=== PATIENT | male | born 1970 | race Caucasian/White ===

== ENCOUNTER 2017-11-06 11:20 | Emergency (ER) | payer BC ==
[2017-11-06] MEDS ORDERED: Albuterol 2.5 MG/3 ML NEB.SOL* (0.083%) INH ONE (12:38)
--- NOTE | 2017-11-06 12:59 | UC ---
General HPI - HPI Summary HPI Summary: Patient presents with an unremarkable past medical history. He presents today with two-three week onset which include, fevers, night sweats, chills, persisten coughing with sputum production and significant fatigue, malaise and anorexia. He states he has no appetite, but does continue to urinate. He reports that the coughing led to vomiting, and he does have intermittent nausea. He presents today for evaluation. He complain of one week ago, diarrhea which is improving. Denies chest pain, abdominal pain, rash or joint pain. - History of Current Complaint Chief Complaint: UCGeneralIllness Stated Complaint: FEVER,COUGH,BODYACHE Time Seen by Provider: 11/06/17 12:23 Onset/Duration: Gradual Onset, Lasting Weeks Timing: Constant Associated Signs & Symptoms: Positive: Cough, Fever, Nausea, Weakness - Allergy/Home Medications Allergies/Adverse Reactions: Allergies Allergy/AdvReac Type Severity Reaction Status Date / Time No Known Allergies Allergy Verified 11/06/17 11:38 Home Medications: Home Medications Guaifenesin [Guaifenesin ER] 1 tab PO ONCE PRN 11/06/17 [History Confirmed 11/06] Ibuprofen [Ibuprofen 200 MG] 600 mg PO Q6HR PRN 11/06/17 [History Confirmed ] Multiple Vitamins W/ Minerals [Centrum Ultra Mens] 1 tab PO DAILY 11/06/17 [ History Confirmed 11/06/17] PMH/Surg Hx/FS Hx/Imm Hx Previously Healthy: Yes - Surgical History Surgical History: None - Family History Known Family History: Positive: Cardiac Disease - Social History Occupation: Employed Full-time Lives: With Family Alcohol Use: Daily Alcohol Amount: 1-2 drinsk daily Substance Use Type: None Smoking Status (MU): Former Smoker Type: Cigars Amount Used/How Often: one - two monthly Have You Smoked in the Last Year: Yes Household Exposure Type: Cigarettes - Immunization History Most Recent Influenza Vaccination: NOT UTD Review of Systems Constitutional: Fever, Chills, Fatigue Skin: Negative Eyes: Negative ENT: Sore Throat, Nasal Discharge, Sinus Congestion Respiratory: Cough Cardiovascular: Negative Gastrointestinal: Negative Genitourinary: Negative Motor: Negative Neurovascular: Negative Musculoskeletal: Arthralgia, Myalgia Neurological: Negative Psychological: Negative Is Patient Immunocompromised?: No All Other Systems Reviewed And Are Negative: Yes Physical Exam Triage Information Reviewed: Yes Appearance: Ill-Appearing Vital Signs: Initial Vital Signs Temp 99.5 F 11/06/17 11:33 Pulse 98 11/06/17 11:33 Resp 16 11/06/17 11:33 BP 144/88 11/06/17 11:33 Pulse Ox 98 11/06/17 11:33 Vital Signs Reviewed: Yes Eye Exam: Normal ENT: Positive: Pharynx normal, Pharyngeal erythema, Tonsillar swelling, Uvula midline - uvual midline with edema. Neck exam: Normal Neck: Positive: 1 Respiratory Exam: Normal Respiratory: Positive: Decreased breath sounds, Crackles, Rhonchi Cardiovascular Exam: Normal Cardiovascular: Positive: RRR, No Murmur Abdominal Exam: Normal Skin Exam: Normal Course/Dx - Course Course Of Treatment: Patient presents with 2-3 week onset generalized fatigue, malaise, with initial symtpoms of nausea, diarrhea, and loss of appetite. He states most of the GI symtpoms have now improved. He now complains of cough, sputum production that at time is so severe he vomits.cHis influenza test was positive for "A". Lungs sounds reveal course audible crackles and inspiratory rhonus of the lowe lobes. CXR was obtained and was negative for pneumonia, he presents clincally with bronchitis and is going to be treated with zpk, and tessalon pearles, and for nausea pepcid. All of the diagnositc studies were reviewed with the patient and he understands that if his symtpoms do not improve he needs to go to the er for further evaluation. - Differential Dx - Multi-Symptom Differential Diagnoses: Other - influenza bronchitis Provider Diagnoses: influenza. bronchitis. nausea. vomiting Discharge - Discharge Plan Condition: Stable Disposition: HOME Prescriptions: Azithromycin TAB* [Zithromax TAB (Z-ELIJAH) 250 mg #6 tabs] 250 mg PO DAILY #6 tab Benzonatate [TESSALON 200 MG CAP] 200 mg PO TID PRN #30 cap PRN Reason: Cough Famotidine TAB* [Pepcid 20 MG TAB*] 20 mg PO BID #14 tab MDD 2 Patient Education Materials: Influenza (ED), Acute Bronchitis (ED), Acute Nausea and Vomiting (ED) Referrals: Bharathi Raygoza MD [Primary Care Provider] -
--- NOTE | 2017-11-06 14:09 | RAD ---
INDICATION: 3 weeks of cough and fever COMPARISON: None TECHNIQUE: PA and lateral views of the chest were obtained. FINDINGS: The heart and mediastinum are normal in size and contour. The lungs are grossly clear. There is no evidence of large pleural effusion. Visualized bones are normal for the patient's age. There is no radiographic evidence of free air beneath the diaphragm IMPRESSION: No radiographic evidence of acute cardiopulmonary disease.
[2017-11-06 14:15] VITALS: BP 135/91
[2017-11-06 16:25] LABS: ABS Basophils 0 10^3/ul (0-0.2); ABS Eosinophils 0 10^3/ul (0-0.6); ABS Lymphocytes 1.2 10^3/ul (1.0-4.8); ABS Monocytes 0.9 10^3/ul (0-0.8); ABS Nucleated RBC 0 10^3/ul; Eosinophil % 0.1 % (0-6); Hematocrit 49 % (42-52); Hemoglobin 16.8 g/dl (14.0-18.0); Lymphocyte % 9.5 % (25-47); Mean Corpuscular HGB Conc 35 g/dl (31-36); Mean Corpuscular Hemoglobin 32 pg (27-31); Mean Corpuscular Volume 94 fL (80-94); Mean Platelet Volume 10 um3 (7.4-10.4); Nucleated Red Blood Cells % 0; Platelet Count 257 10^3/ul (150-450); Red Cell Distribution Width 13 % (10.5-15); White Blood Count 12.2 10^3/ul (3.5-10.8)
[2017-11-06 17:10] LABS: EGFR Non-African American 94.9 (>60)
--- NOTE | 2017-11-07 08:35 | UC ---
- Progress Note Progress Note: mild increase WBCs elevated LFTs needs to follow up with his PMD Course/Dx - Course Course Of Treatment: Patient presents with 2-3 week onset generalized fatigue, malaise, with initial symtpoms of nausea, diarrhea, and loss of appetite. He states most of the GI symtpoms have now improved. He now complains of cough, sputum production that at time is so severe he vomits.cHis influenza test was positive for "A". Lungs sounds reveal course audible crackles and inspiratory rhonus of the lowe lobes. CXR was obtained and was negative for pneumonia, he presents clincally with bronchitis and is going to be treated with zpk, and tessalon pearles, and for nausea pepcid. All of the diagnositc studies were reviewed with the patient and he understands that if his symtpoms do not improve he needs to go to the er for further evaluation.
== END 2017-11-06 14:26 | disposition home or self-care (01) ==
LOC: UCEAST 11:20
DX: J11.1 Influenza due to unidentified influenza virus with other respiratory manifestations (principal); J40 Bronchitis, not specified as acute or chronic; R11.2 Nausea with vomiting, unspecified; R19.7 Diarrhea, unspecified; Z87.891 Personal history of nicotine dependence
CPT/HCPCS: 36415; 71020; 80053; 85025; 87502; 87651; 99212; G0463

== ENCOUNTER 2019-12-29 11:07 | Emergency (ER) | payer BC ==
--- NOTE | 2019-12-29 11:25 | UC ---
Lower Extremity/Ankle HPI - HPI Summary HPI Summary: 49 yo male presents with RIGHT calf pain. He tells me that he was playing soccer on 12/19 and felt a pop in his right calf. Since that time has had pain to the area. Over the last 5-7 days has had increasing swelling to the calf despite ice and elevation. He is having difficulty walking due to swelling and pain. Denies fever, numbness, tingling, or hx of blood clots. - History of Current Complaint Stated Complaint: RT LEG/CALF PAIN Time Seen by Provider: 12/29/19 11:24 Hx Obtained From: Patient Onset/Duration: Sudden Onset Severity Initially: Moderate Severity Currently: Moderate Pain Intensity: 7 Pain Scale Used: 0-10 Numeric - Allergies/Home Medications Allergies/Adverse Reactions: Allergies Allergy/AdvReac Type Severity Reaction Status Date / Time No Known Allergies Allergy Verified 12/29/19 11:33 Home Medications: Home Medications Ascorbic Acid TAB* [Vitamin C TAB*] 500 mg PO DAILY 09/24/19 [History Confirmed 12/29/19] Cholecalciferol TAB* [Vitamin D TAB*] 1,000 unit PO DAILY 09/24/19 [History Confirmed 12/29/19] Vitamin E CAP* 400 units PO DAILY 10/01/19 [History Confirmed 12/29/19] Ibuprofen 400 mg PO ONCE PRN 12/29/19 [History Confirmed 12/29/19] PMH/Surg Hx/FS Hx/Imm Hx - Additional Past Medical History Additional PMH: Neck pain - Surgical History Surgical History: None - Family History Known Family History: Positive: Cardiac Disease - Social History Lives: With Family Alcohol Use: Daily Alcohol Amount: 1-2 drinsk daily Substance Use Type: None Smoking Status (MU): Former Smoker Type: Cigars Amount Used/How Often: one - two monthly Have You Smoked in the Last Year: Yes Household Exposure Type: Cigarettes - Immunization History Most Recent Influenza Vaccination: NOT UTD Review of Systems All Other Systems Reviewed And Are Negative: No Constitutional: Positive: Negative Respiratory: Positive: Negative Cardiovascular: Positive: Negative Neurovascular: Positive: Negative Musculoskeletal: Positive: Other: - Right calf pain Neurological/Mental Status: Positive: Negative Psychological: Positive: Negative Physical Exam - Summary Physical Exam Summary: GENERAL: NAD. WDWN. No pain distress. SKIN: No rashes, sores, lesions, or open wounds. CHEST: No accessory muscle use. Breathing comfortably and in no distress. CV: Pulses intact PT and DP. Cap refill <2seconds MSK: RIGHT CALF: Moderate edema 45cm compared to 40cm on left. FROM at right knee and ankle. Negative cobb test. NEURO: Alert. Sensations intact and symmetric B/L LEs PSYCH: Age appropriate behavior. Triage Information Reviewed: Yes Vital Signs: Vital Signs: Temp Pulse Resp BP Pulse Ox 98 F 68 18 123/78 98 12/29/19 11:28 12/29/19 11:28 12/29/19 11:28 12/29/19 11:12/29/19 11:28 Vital Signs Reviewed: Yes Diagnostics - Radiology US right calf Radiology Interpretation Completed By: Radiologist Summary of Radiographic Findings: TECHNIQUE: Multiple transverse and longitudinal ultrasound images were obtained of the right lower extremity from the level of the common femoral vein inferiorly through to the infrapopliteal veins using grayscale, color Doppler, and spectral Doppler imaging with and without compression and with augmentation. Comparison images were obtained of the contralateral common femoral vein. FINDINGS: VEINS: The venous system of the right lower extremity is compressible throughout its course, with normal flow on color Doppler imaging and normal response to augmentation on spectral Doppler imaging. SOFT TISSUES: There is an area of heterogeneous echogenicity of the right mid calf an area of pain OTHER FINDINGS: None. IMPRESSION: 1. NO RIGHT LOWER EXTREMITY DEEP VEIN THROMBOSIS 2. AREA OF HETEROGENEOUS ECHOGENICITY WITHIN THE RIGHT MID CALF IN THE AREA OF PAIN WHICH MAY INDICATE INTRAMUSCULAR HEMATOMA IN THE SETTING OF INJURY. Lower Extremity Course/Dx - Course Course Of Treatment: US as above. Given worsening symptoms and swelling - I called Orthopedics and they have scheduled pt for an appt tomorrow morning at 10:[address] Narayan for further evaluation. Discussed results and appt with pt. No signs of compartment syndrome today, but I did review signs/symptoms of this condition with pt and made him aware to go to the ED if he develops. He was provided with crutches to be non-weight bearing. Advised to rest, ice, and elevate as much as possible and f/u with Ortho tomorrow morning. - Differential Dx/Diagnosis Provider Diagnosis: Hematoma Discharge ED - Sign-Out/Discharge Documenting (check all that apply): Patient Departure All imaging exams completed and their final reports reviewed: Yes - Discharge Plan Condition: Stable Disposition: HOME Patient Education Materials: Hematoma (ED) Referrals: Bharathi Raygoza MD [Primary Care Provider] - Jose Narayan MD [Medical Doctor] - 12/30/19 10:00 am Additional Instructions: Rest, Ice, and elevate your leg as much as possible. I recommend using the crutches to not bear weight on your leg. You have an appointment tomorrow with Dr. Narayan at 10:00am for a recheck of your leg. If you notice increased pain, paleness of your foot/ankle, or decreased feeling of your foot/ankle - please go to the ER immediately. - Billing Disposition and Condition Condition: STABLE Disposition: Home - Attestation Statements Provider Attestation: I was available for consult. This patient was seen by the BEE. The patient was not presented to, seen by, or examined by me. -Susie
[2019-12-29 11:33] VITALS: BP 123/78
== END 2019-12-29 13:05 | disposition home or self-care (01) ==
LOC: UCEAST 11:07
DX: S80.11XA Contusion of right lower leg, initial encounter (principal); Z87.891 Personal history of nicotine dependence; X58.XXXA Exposure to other specified factors, initial encounter; Y93.66 Activity, soccer; Y92.9 Unspecified place or not applicable
CPT/HCPCS: 99212; G0463